=== PATIENT | female | born 2000 | race Caucasian/White ===

== ENCOUNTER 2020-11-14 01:50 | Outpatient (CLI) | payer OTHER ==
[~2020-11-14 01:50] MED LIST: COLACE 100MG C100 MG PO; IBUPROFEN600 MG PO; NORCO 10-325 T1 EACH PO
== END 2020-11-14 04:38 | disposition home or self-care (01) ==
LOC: GENOP 01:50
DX: O42.92 Full-term premature rupture of membranes, unspecified as to length of time between rupture and onset of labor (principal); O99.891 Other specified diseases and conditions complicating pregnancy; M54.9 Dorsalgia, unspecified; Z3A.38 38 weeks gestation of pregnancy
CPT/HCPCS: 81001; 83518; G0463

== ENCOUNTER → 2020-11-20 | Outpatient (CLI) | payer OTHER ==
[~2020-11-20] MED LIST changes: +DOCUSATE SODIU100 MG PO; +HYDROCODON-ACE1 EAC4 PO
[2020-11-20 14:12] LABS: HEMOGLOBIN 10.9 gm/dl (12.3-15.3); RED BLOOD COUNT 4.01 M/UL (4.00-5.10); WHITE BLOOD COUNT 10.4 K/UL (4.5-11.0)
== END ==
LOC: GENOP 13:19
PROVIDERS: Obstetrics & Gynecology
DX: Z01.812 Encounter for preprocedural laboratory examination (principal); Z20.822 Contact with and (suspected) exposure to COVID-19; O09.899 Supervision of other high risk pregnancies, unspecified trimester; Z3A.00 Weeks of gestation of pregnancy not specified
CPT/HCPCS: 36415; 80307; 81001; 85025; U0002

== ENCOUNTER 2020-11-21 05:58 | Inpatient (IN) | payer OTHER ==
[~2020-11-21] VITALS: Ht 167.6 cm; Wt 64.9 kg
[~2020-11-21 05:58] MED LIST changes: -DOCUSATE SODIU100 MG PO; -HYDROCODON-ACE1 EAC4 PO
[2020-11-21] MEDS ORDERED: IBUPROFEN600 MG PO (08:11)
[2020-11-21] MEDS ORDERED: HYDROCODON-ACE1 EAC4 PO (08:11)
[2020-11-21] MEDS ORDERED: DOCUSATE SODIU100 MG PO (08:11)
[2020-11-22 07:06] LABS: HEMOGLOBIN 9.4 gm/dl (12.3-15.3)
== END 2020-11-23 12:35 | disposition home or self-care (01) | DRG 787 ==
LOC: OB 05:58
PROVIDERS: ADMIT Obstetrics & Gynecology
PROC: 4A1HXCZ Monitoring of Products of Conception, Cardiac Rate, External Approach (ICD-10-PCS; 2020-11-21)
PROC: 10D00Z1 Extraction of Products of Conception, Low, Open Approach (ICD-10-PCS; principal; 2020-11-21 07:30)
DX: O34.211 Maternal care for low transverse scar from previous cesarean delivery (principal); O99.354 Diseases of the nervous system complicating childbirth; O99.324 Drug use complicating childbirth; O75.89 Other specified complications of labor and delivery; F19.10 Other psychoactive substance abuse, uncomplicated; O99.334 Smoking (tobacco) complicating childbirth; G43.909 Migraine, unspecified, not intractable, without status migrainosus; F12.90 Cannabis use, unspecified, uncomplicated; Z20.822 Contact with and (suspected) exposure to COVID-19; F17.210 Nicotine dependence, cigarettes, uncomplicated; O77.0 Labor and delivery complicated by meconium in amniotic fluid; Z81.8 Family history of other mental and behavioral disorders; Z3A.37 37 weeks gestation of pregnancy; Z37.0 Single live birth; Z82.49 Family history of ischemic heart disease and other diseases of the circulatory system
CPT/HCPCS: 36415; 80307; 81001; 82800; 85014; 85018; 85025; C9113; J0690; J0780; J1170; J2250; J2274; J2590; J2704; J7120; U0002

== ENCOUNTER → 2022-01-19 | Outpatient (CLI) | payer OTHER ==
[~2022-01-19] MED LIST changes: +DOCUSATE SODIU100 MG PO; +HYDROCODON-ACE1 EAC4 PO; +ZOLOFT50 MG PO
[2022-01-19 13:51] LABS: HEMOGLOBIN 9.2 gm/dl (12.3-15.3); RED BLOOD COUNT 3.74 M/UL (4.00-5.10); WHITE BLOOD COUNT 11.3 K/UL (4.5-11.0)
== END ==
LOC: GENOP 13:01
PROVIDERS: Obstetrics & Gynecology
DX: Z01.812 Encounter for preprocedural laboratory examination (principal)
CPT/HCPCS: 36415; 80307; 81001; 85025

== ENCOUNTER 2022-01-21 05:25 | Inpatient (IN) | payer OTHER ==
[~2022-01-21] VITALS: Ht 167.6 cm; Wt 61.2 kg
[~2022-01-21 05:25] MED LIST changes: -ZOLOFT50 MG PO
[2022-01-21] MEDS ORDERED: IBUPROFEN600 MG PO (09:25)
[2022-01-21] MEDS ORDERED: HYDROCODON-ACE1 EAC4 PO (09:25)
[2022-01-21] MEDS ORDERED: DOCUSATE SODIU100 MG PO (09:25)
[2022-01-22 04:28] LABS: HEMOGLOBIN 8.3 gm/dl (12.3-15.3)
[2022-01-22] MEDS ORDERED: ZOLOFT50 MG PO (18:44)
== END 2022-01-23 12:08 | disposition home or self-care (01) | DRG 787 ==
LOC: OB 05:25
PROVIDERS: ADMIT Obstetrics & Gynecology
PROC: 4A1HXCZ Monitoring of Products of Conception, Cardiac Rate, External Approach (ICD-10-PCS; 2022-01-21)
PROC: 10D00Z1 Extraction of Products of Conception, Low, Open Approach (ICD-10-PCS; principal; 2022-01-21 09:15)
DX: O34.211 Maternal care for low transverse scar from previous cesarean delivery (principal); D62 Acute posthemorrhagic anemia; O99.324 Drug use complicating childbirth; Z3A.39 39 weeks gestation of pregnancy; Z37.0 Single live birth; O99.334 Smoking (tobacco) complicating childbirth; F17.290 Nicotine dependence, other tobacco product, uncomplicated; O99.02 Anemia complicating childbirth; F15.10 Other stimulant abuse, uncomplicated; Z82.49 Family history of ischemic heart disease and other diseases of the circulatory system; Z81.8 Family history of other mental and behavioral disorders; Z80.1 Family history of malignant neoplasm of trachea, bronchus and lung
CPT/HCPCS: 36415; 82800; 85014; 85018; C9113; J0690; J1200; J1885; J2274; J2370; J2405; J2590; J3010